=== PATIENT | female | born 1990 | race African-American/Black ===

== ENCOUNTER 2018-01-18 10:39 | Emergency (ER) | payer MEDICAID ==
[~2018-01-18] VITALS: Ht 170.2 cm; Wt 69.0 kg
[2018-01-18 11:41] VITALS: BP 120/81
== END 2018-01-18 16:14 | disposition home or self-care (01) ==
LOC: ER 16:07
DX: H10.021 Other mucopurulent conjunctivitis, right eye (principal)
CPT/HCPCS: 99283